=== PATIENT | male | born 1955 | race Caucasian/White ===

== ENCOUNTER 2022-04-12 09:23 | Inpatient (IN) | payer MEDICARE ==
[2022-04-12] VITALS (39 sets, daily range): BP systolic 94–127; BP diastolic 58–82
[~2022-04-12] VITALS: Ht 172.7 cm; Wt 78.1 kg
[2022-04-12] MEDS ORDERED: SODIUM CHLORIDE 0.9% 1000ML BAG (SEPSIS BOLUS) IV ONE (09:45)
[2022-04-12 09:50] LABS: HEMATOCRIT. 54.5 % (42.0-52.0); MEAN CORPUSCULAR HEMOGLOBIN 31.4 pg (28.0-32.0); MEAN CORPUSCULAR VOLUME 100.6 fL (80.0-94.0); MEAN PLATELET VOLUME 10.3 fl (7.4-10.4); PLATELET 232 x1000/uL (130-400); RED BLOOD CELL COUNT 5.42 mill/uL (4.7-6.1); RED CELL DISTRIBUTION WIDTH 14.8 % (11.6-14.6)
[2022-04-12 09:54] LABS: BG BASE EXCESS -24.5 mmol/L (-2.0-2.0); BG CARBOXYHEMOGLOBIN 0.3 % (0.5-1.5); BG DEOXYHEMOGLOBIN 1.8 % (0.0-5.0); BG FRACTION INSPIRED OXYGEN 32; BG METHEMOGLOBIN 0.7 % (0.0-1.5); BG OXYGEN SATURATION 98.2 % (92.0-98.5); BG OXYHEMOGLOBIN 97.2 % (94.0-97.0); BG PCO2 10.2 mmHg (35.0-45.0); BG PO2 149.6 mmHg (75.0-100.0); BG SAMPLE SITE RIGHT RADIAL; BG VENT MODE NASAL CANNULA
[2022-04-12 10:00] LABS: CHLORIDE 82 mEq/L (98-107)
[2022-04-12 10:14] LABS: PLATELET ESTIMATE NORMAL
[2022-04-12] MEDS ORDERED: INSULIN REGULAR (DRIP) 100 UNITS in SODIUM CHLORIDE 0.9% 100 ML IV ONE (10:15)
[2022-04-12 10:45] LABS: BETA HYDROXYBUTYRATE 13.8 mMol/L (0.0-0.3)
[2022-04-12] MEDS ORDERED: INSULIN REGULAR 100U/100ML PMX 100 ML IV NR (10:45)
[2022-04-12 10:47] LABS: PHOSPHORUS 8.3 mg/dL (2.5-4.9)
[2022-04-12] MEDS ORDERED: PIPERACILLIN/TAZ 3.375G PREMIX 50 ML IV NR (11:00)
[2022-04-12] MEDS ORDERED: VANCOMYCIN 1G PREMIX 200 ML IV NR (11:00)
[2022-04-12] MEDS ORDERED: DILTIAZEM HCL 5MG/ML 5ML VIAL IV ONE (11:15)
[2022-04-12] MEDS ORDERED: DILTIAZEM HCL 125 MG in DEXT 5% WATER 100 ML IV ONE (11:45)
[2022-04-12] MEDS ORDERED: DILTIAZEM 125MG/125ML PMX 100 ML IV ONE (12:16)
[2022-04-12 12:41] LABS: CLARITY URINE CLEAR (CLEAR); COLOR URINE YELLOW (YELLOW); KETONES URINE 4+ (NEGATIVE); LEUKOCYTE ESTERASE URINE NEGATIVE (NEGATIVE); NITRITE URINE NEGATIVE (NEGATIVE); OCCULT BLOOD URINE 1+ (NEGATIVE); PROTEIN URINE TRACE (NEGATIVE); SPECIFIC GRAVITY URINE 1.027 (1.005-1.030); UROBILINOGEN URINE 0.2 E.U./dL (0.2-1.0)
[2022-04-12] MEDS ORDERED: LIDOCAINE HCL/PF 1% 10 MG/ML 5ML VIAL ONE (12:41)
[2022-04-12] MEDS ORDERED: METF-414 PO (15:27)
[2022-04-12] MEDS ORDERED: SODIUM BICARBONATE 8.4% 1 MEQ/ML 50ML SYR IV NR (15:45)
[2022-04-12] MEDS ORDERED: SODIUM CHLORIDE 0.45% 1,000 ML IV SCH (15:45)
[2022-04-12] MEDS ORDERED: DEXTROSE 50% WATER 50ML SYRINGE IV PRN ×2 (16:15)
[2022-04-12] MEDS ORDERED: DIPHENHYDRAMINE 50MG/ML VIAL IV PRN (16:15)
[2022-04-12] MEDS ORDERED: IPRATROPIUM/ALBUTEROL 0.5-3(2.5)MG/3ML NEB HHN PRN (16:15)
[2022-04-12] MEDS ORDERED: HYDROCODONE/ACETAMINOPHEN 5/325MG TABLET PO PRN (16:15)
[2022-04-12] MEDS ORDERED: LORAZEPAM 2MG/ML CPJ IV PRN (16:15)
[2022-04-12] MEDS ORDERED: HYDRALAZINE 20MG/ML VIAL IV PRN (16:15)
[2022-04-12] MEDS ORDERED: ONDANSETRON HCL 4MG/2ML INJ IV PRN (16:15)
[2022-04-12] MEDS ORDERED: ACETAMINOPHEN 325MG TABLET PO PRN (16:15)
[2022-04-12] MEDS ORDERED: GUAIFENESIN 200MG/10ML SUGAR FREE UDC PO PRN (16:15)
[2022-04-12] MEDS ORDERED: DOCUSATE SODIUM 100MG CAPSULE PO PRN (16:15)
[2022-04-12] MEDS ORDERED: CLONIDINE 0.1MG TABLET PO PRN (16:15)
[2022-04-12] MEDS ORDERED: MAGNESIUM/ALUMINUM HYDROXIDE/SIMETHICONE 30ML UDC PO PRN (16:15)
[2022-04-12] MEDS ORDERED: MORPHINE SULFATE 2 MG/ML CPJ (NOT FOR IM USE) IV PRN (16:15)
[2022-04-12] MEDS: BLOOD SUGAR DIAGNOSTIC STRIP TEST SCH ×8 (16:20→23:07)
[2022-04-12] MEDS ORDERED: ENOXAPARIN 40MG/0.4ML SYR SUBCUT SCH (17:00)
[2022-04-12] MEDS ORDERED: NALOXONE HCL 0.4MG/ML VIAL IV PRN (17:15)
[2022-04-12] MEDS: INSULIN REGULAR 100U/100ML PMX 100 ML IV PRN ×2 (17:20→20:35)
[2022-04-12 19:22] LABS: CHLORIDE 108 mEq/L (98-107)
[2022-04-12] MEDS ORDERED: POTASSIUM CHLORIDE INJ 40 MEQ in DEXT 5% WATER 250 ML IV ONE (21:00)
[2022-04-12] MEDS ORDERED: KCL 20MEQ/100ML PREMIX 100 ML IV NR (21:00)
[2022-04-12] MEDS: DEXT 5%/0.45% NACL 1000ML 1,000 ML IV PRN (21:39)
[2022-04-12] MEDS: KCL 20MEQ/100ML PREMIX 100 ML IV SCH ×2 (21:39→22:56)
[2022-04-12] MEDS: SODIUM CHLORIDE 0.9% INJ 3ML FLUSH IVF SCH (21:40)
[2022-04-12] MEDS: PIPERACILLIN/TAZOBACTAM 3.375 G in DEXTROSE 5% WATER 50 ML IV SCH (21:40)
[2022-04-13] VITALS (58 sets, daily range): BP systolic 109–141; BP diastolic 70–88
[2022-04-13] MEDS: BLOOD SUGAR DIAGNOSTIC STRIP TEST SCH ×14 (00:18→21:09)
[2022-04-13 00:27] LABS: CHLORIDE 110 mEq/L (98-107)
[2022-04-13] MEDS: KCL 20MEQ/100ML PREMIX 100 ML IV SCH (01:11)
[2022-04-13] MEDS: PIPERACILLIN/TAZOBACTAM 3.375 G in DEXTROSE 5% WATER 50 ML IV SCH ×3 (06:04→21:15)
[2022-04-13] MEDS: SODIUM CHLORIDE 0.9% INJ 3ML FLUSH IVF SCH ×3 (06:04→21:09)
[2022-04-13] MEDS: DEXT 5%/0.45% NACL 1000ML 1,000 ML IV PRN (06:09)
[2022-04-13 07:34] LABS: CHLORIDE 112 mEq/L (98-107)
[2022-04-13] MEDS ORDERED: ENOXAPARIN 60MG/0.6ML SYR SUBCUT NR (11:00)
[2022-04-13 11:01] LABS: HEMATOCRIT. 36.7 % (42.0-52.0); HEMOGLOBIN. 12.4 g/dL (14.0-18.0); MEAN CORPUSCULAR HEMOGLOBIN 30.9 pg (28.0-32.0); MEAN CORPUSCULAR VOLUME 91.4 fL (80.0-94.0); MEAN PLATELET VOLUME 9.2 fl (7.4-10.4); PLATELET 151 x1000/uL (130-400); RED BLOOD CELL COUNT 4.01 mill/uL (4.7-6.1); RED CELL DISTRIBUTION WIDTH 13.4 % (11.6-14.6)
[2022-04-13] MEDS: DILTIAZEM HCL 30MG TABLET PO SCH ×2 (11:43→17:38)
[2022-04-13] MEDS: SODIUM CHLORIDE 0.45% 1,000 ML IV SCH ×2 (11:43→21:19)
[2022-04-13] MEDS: INSULIN GLARGINE 100 UNITS/ML SUBCUT SCH (11:43)
[2022-04-13 12:02] LABS: PLATELET ESTIMATE NORMAL
[2022-04-13 12:35] LABS: INR 0.9; PROTHROMBIN TIME 9.7 sec (9.6-11.0)
[2022-04-13] MEDS: INSULIN LISPRO 100 UNITS/ML SUBCUT SCH ×3 (13:30→21:14)
[2022-04-13] MEDS: ENOXAPARIN 60MG/0.6ML SYR SUBCUT SCH (22:01)
[2022-04-14] VITALS (82 sets, daily range): BP systolic 60–142; BP diastolic 43–76
[2022-04-14] MEDS: DILTIAZEM HCL 30MG TABLET PO SCH ×3 (00:50→14:12)
[2022-04-14] MEDS: PIPERACILLIN/TAZOBACTAM 3.375 G in DEXTROSE 5% WATER 50 ML IV SCH ×3 (06:10→21:06)
[2022-04-14] MEDS: SODIUM CHLORIDE 0.9% INJ 3ML FLUSH IVF SCH ×3 (06:11→22:00)
[2022-04-14] MEDS: BLOOD SUGAR DIAGNOSTIC STRIP TEST SCH ×4 (08:28→21:00)
[2022-04-14] MEDS: INSULIN LISPRO 100 UNITS/ML SUBCUT NR ×2 (08:45→14:11)
[2022-04-14] MEDS: SODIUM CHLORIDE 0.45% 1,000 ML IV SCH ×3 (08:50→21:59)
[2022-04-14] MEDS: INSULIN LISPRO 100 UNITS/ML SUBCUT SCH ×4 (08:51→21:08)
[2022-04-14] MEDS ORDERED: SODIUM CHLORIDE 0.9% 500 ML IV SCH (10:00)
[2022-04-14] MEDS ORDERED: ADENOSINE 3 MG/ML 2ML VIAL IV SCH (10:00)
[2022-04-14] MEDS ORDERED: AMIODARONE HCL 150 MG in DEXT 5% WATER 100 ML IV SCH (10:30)
[2022-04-14] MEDS ORDERED: AMIODARONE HCL 900 MG in DEXT 5% WATER 482 ML IV PRN (10:45)
[2022-04-14] MEDS ORDERED: ADENOSINE 3 MG/ML 2ML VIAL IV NR (11:00)
[2022-04-14] MEDS ORDERED: SODIUM CHLORIDE 0.9% IRRIG SOLUTION 1000ML IR ONE (11:00)
[2022-04-14] MEDS ORDERED: PHENYLEPHRINE 100 MG in DEXT 5% WATER 240 ML IV PRN (11:00)
[2022-04-14] MEDS ORDERED: SODIUM CHLORIDE 0.9% 500 ML IV ONE (11:15)
[2022-04-14] MEDS: ENOXAPARIN 60MG/0.6ML SYR SUBCUT SCH ×2 (11:19→23:31)
[2022-04-14] MEDS: INSULIN GLARGINE 100 UNITS/ML SUBCUT SCH (11:46)
[2022-04-14] MEDS ORDERED: INSULIN LISPRO 100 UNITS/ML SUBCUT NR ×2 (14:00→18:30)
[2022-04-14] MEDS ORDERED: INSULIN GLARGINE 100 UNITS/ML SUBCUT NR (14:00)
[2022-04-14 17:20] LABS: CHLORIDE 112 mEq/L (98-107)
[2022-04-14] MEDS: KCL 20MEQ/100ML PREMIX 100 ML IV SCH ×2 (18:35→21:00)
[2022-04-15] VITALS (61 sets, daily range): BP systolic 95–128; BP diastolic 46–92
[2022-04-15] MEDS: SODIUM CHLORIDE 0.45% 1,000 ML IV SCH ×3 (06:06→23:01)
[2022-04-15] MEDS: PIPERACILLIN/TAZOBACTAM 3.375 G in DEXTROSE 5% WATER 50 ML IV SCH ×3 (06:06→23:01)
[2022-04-15] MEDS: SODIUM CHLORIDE 0.9% INJ 3ML FLUSH IVF SCH ×3 (06:07→21:08)
[2022-04-15] MEDS: BLOOD SUGAR DIAGNOSTIC STRIP TEST SCH ×4 (08:05→21:03)
[2022-04-15] MEDS: INSULIN LISPRO 100 UNITS/ML SUBCUT SCH ×4 (08:10→21:03)
[2022-04-15] MEDS: ENOXAPARIN 60MG/0.6ML SYR SUBCUT SCH (09:00)
[2022-04-15] MEDS: DILTIAZEM HCL 30MG TABLET PO SCH ×3 (09:00→22:00)
[2022-04-15 09:13] LABS: MEAN CORPUSCULAR HEMOGLOBIN 31.8 pg (28.0-32.0); MEAN CORPUSCULAR VOLUME 92.6 fL (80.0-94.0); PLATELET 99 x1000/uL (130-400); RED BLOOD CELL COUNT 1.59 mill/uL (4.7-6.1); RED CELL DISTRIBUTION WIDTH 12.9 % (11.6-14.6)
[2022-04-15 09:16] LABS: HEMATOCRIT 14.7 % (42.0-52.0); HEMOGLOBIN 5.1 g/dL (14.0-18.0)
[2022-04-15] MEDS: INSULIN GLARGINE 100 UNITS/ML SUBCUT SCH ×2 (10:08→22:00)
[2022-04-15] MEDS ORDERED: PANTOPRAZOLE SODIUM 40 MG/VIAL IV SCH (11:30)
[2022-04-15] MEDS: PANTOPRAZOLE SODIUM 40 MG/VIAL IV SCH (17:24)
[2022-04-15 20:21] LABS: TOTAL IRON BINDING CAPACITY 216 ug/dL (250-450)
[2022-04-15 23:42] LABS: HEMOGLOBIN 7.3 g/dL (14.0-18.0)
[2022-04-16] VITALS (15 sets, daily range): BP systolic 97–116; BP diastolic 53–70
[2022-04-16] MEDS: PIPERACILLIN/TAZOBACTAM 3.375 G in DEXTROSE 5% WATER 50 ML IV SCH ×3 (05:11→21:49)
[2022-04-16] MEDS: SODIUM CHLORIDE 0.9% INJ 3ML FLUSH IVF SCH ×3 (05:11→21:51)
[2022-04-16] MEDS: DILTIAZEM HCL 30MG TABLET PO SCH ×3 (05:11→21:51)
[2022-04-16] MEDS: SODIUM CHLORIDE 0.45% 1,000 ML IV SCH ×3 (05:12→21:50)
[2022-04-16 05:48] LABS: INR 0.9; PROTHROMBIN TIME 9.9 sec (9.6-11.0)
[2022-04-16 06:20] LABS: MEAN CORPUSCULAR HEMOGLOBIN 30.6 pg (28.0-32.0); MEAN CORPUSCULAR VOLUME 89.1 fL (80.0-94.0); MEAN PLATELET VOLUME 9.9 fl (7.4-10.4); PLATELET 104 x1000/uL (130-400); RED BLOOD CELL COUNT 2.36 mill/uL (4.7-6.1); RED CELL DISTRIBUTION WIDTH 14.7 % (11.6-14.6)
[2022-04-16 06:30] LABS: CHLORIDE 114 mEq/L (98-107)
[2022-04-16 06:33] LABS: HEMOGLOBIN. 7.2 g/dL (14.0-18.0)
[2022-04-16] MEDS: BLOOD SUGAR DIAGNOSTIC STRIP TEST SCH ×4 (07:30→21:49)
[2022-04-16] MEDS: INSULIN LISPRO 100 UNITS/ML SUBCUT SCH ×4 (08:00→21:50)
[2022-04-16] MEDS ORDERED: POTASSIUM CHLORIDE INJ 40 MEQ in DEXT 5% WATER 250 ML IV ONE (09:30)
[2022-04-16 09:47] LABS: NUCLEATED RED BLOOD CELLS 1 /100 WBC; PLATELET ESTIMATE DECREASED
[2022-04-16] MEDS: INSULIN GLARGINE 100 UNITS/ML SUBCUT SCH ×2 (10:00→21:51)
[2022-04-16] MEDS: KCL 20MEQ/100ML X 2 FOR TOTAL KCL 40MEQ/200ML IV SCH ×2 (10:55→13:26)
[2022-04-16] MEDS: PANTOPRAZOLE SODIUM 40 MG/VIAL IV SCH ×2 (10:55→21:49)
[2022-04-16 21:45] LABS: HEMATOCRIT 25.6 % (42.0-52.0)
[2022-04-17] VITALS (12 sets, daily range): BP systolic 93–123; BP diastolic 49–68
[2022-04-17 03:06] LABS: HEMATOCRIT. 27.8 % (42.0-52.0); HEMOGLOBIN. 9.5 g/dL (14.0-18.0); MEAN CORPUSCULAR HEMOGLOBIN 30.4 pg (28.0-32.0); MEAN CORPUSCULAR VOLUME 89.6 fL (80.0-94.0); MEAN PLATELET VOLUME 9.4 fl (7.4-10.4); PLATELET 138 x1000/uL (130-400); RED BLOOD CELL COUNT 3.11 mill/uL (4.7-6.1); RED CELL DISTRIBUTION WIDTH 15.2 % (11.6-14.6)
[2022-04-17 03:15] LABS: CHLORIDE 113 mEq/L (98-107)
[2022-04-17 04:13] LABS: INR 0.9; PROTHROMBIN TIME 9.8 sec (9.6-11.0)
[2022-04-17 04:14] LABS: PLATELET ESTIMATE NORMAL
[2022-04-17] MEDS: DILTIAZEM HCL 30MG TABLET PO SCH ×3 (05:52→21:11)
[2022-04-17] MEDS: SODIUM CHLORIDE 0.45% 1,000 ML IV SCH ×2 (05:52→14:15)
[2022-04-17] MEDS: PIPERACILLIN/TAZOBACTAM 3.375 G in DEXTROSE 5% WATER 50 ML IV SCH ×2 (05:52→14:01)
[2022-04-17] MEDS: SODIUM CHLORIDE 0.9% INJ 3ML FLUSH IVF SCH ×3 (05:52→21:11)
[2022-04-17] MEDS: INSULIN LISPRO 100 UNITS/ML SUBCUT SCH ×3 (08:00→21:12)
[2022-04-17] MEDS: BLOOD SUGAR DIAGNOSTIC STRIP TEST SCH ×4 (08:16→20:27)
[2022-04-17] MEDS ORDERED: POTASSIUM CHLORIDE 20MEQ TABLET SR PO NR (09:30)
[2022-04-17] MEDS: PANTOPRAZOLE SODIUM 40 MG/VIAL IV SCH ×2 (09:53→21:10)
[2022-04-17] MEDS: INSULIN GLARGINE 100 UNITS/ML SUBCUT SCH ×2 (10:13→21:11)
[2022-04-17] MEDS ORDERED: METOCLOPRAMIDE HCL 10MG/2ML VIAL IV NR (10:30)
[2022-04-17] MEDS ORDERED: POTASSIUM CHLORIDE INJ 40 MEQ in DEXT 5% WATER 250 ML IV ONE (13:15)
[2022-04-17] MEDS: KCL 20MEQ/100ML X 2 FOR TOTAL KCL 40MEQ/200ML IV SCH ×4 (14:44→21:24)
[2022-04-17] MEDS ORDERED: POTASSIUM CHLORIDE 20MEQ/PACKET PO NR ×2 (16:15→23:00)
[2022-04-18] VITALS (12 sets, daily range): BP systolic 92–131; BP diastolic 53–80
[2022-04-18] MEDS: SODIUM CHLORIDE 0.45% 1,000 ML IV SCH ×4 (01:58→21:54)
[2022-04-18 04:11] LABS: CHLORIDE 111 mEq/L (98-107)
[2022-04-18 04:22] LABS: INR 0.9; PROTHROMBIN TIME 10.1 sec (9.6-11.0)
[2022-04-18 04:38] LABS: HEMATOCRIT. 21.9 % (42.0-52.0); HEMOGLOBIN. 7.6 g/dL (14.0-18.0); MEAN CORPUSCULAR HEMOGLOBIN 30.7 pg (28.0-32.0); MEAN CORPUSCULAR VOLUME 89.1 fL (80.0-94.0); MEAN PLATELET VOLUME 8.8 fl (7.4-10.4); PLATELET 138 x1000/uL (130-400); RED BLOOD CELL COUNT 2.46 mill/uL (4.7-6.1); RED CELL DISTRIBUTION WIDTH 14.8 % (11.6-14.6)
[2022-04-18] MEDS: DILTIAZEM HCL 30MG TABLET PO SCH (06:00)
[2022-04-18] MEDS: SODIUM CHLORIDE 0.9% INJ 3ML FLUSH IVF SCH ×3 (06:08→21:53)
[2022-04-18] MEDS: BLOOD SUGAR DIAGNOSTIC STRIP TEST SCH ×4 (07:30→21:51)
[2022-04-18] MEDS: INSULIN LISPRO 100 UNITS/ML SUBCUT SCH ×4 (08:00→21:53)
[2022-04-18 08:08] LABS: NUCLEATED RED BLOOD CELLS 2 /100 WBC
[2022-04-18] MEDS: PANTOPRAZOLE SODIUM 40 MG/VIAL IV SCH ×2 (09:27→21:52)
[2022-04-18] MEDS: INSULIN GLARGINE 100 UNITS/ML SUBCUT SCH ×2 (09:38→21:54)
[2022-04-18] MEDS ORDERED: PROPOFOL 200MG/20ML VIAL IV ONE (12:09)
[2022-04-18] MEDS ORDERED: LIDOCAINE HCL 1% 50ML VIAL (10MG/ML) ONE (12:13)
[2022-04-18 14:00] LABS: PLATELET ESTIMATE NORMAL
[2022-04-18] MEDS: SUCRALFATE 1 G/10 ML UDC PO SCH ×2 (17:39→21:51)
[2022-04-18 21:31] LABS: HEMATOCRIT 30.1 % (42.0-52.0); HEMOGLOBIN 10.1 g/dL (14.0-18.0)
[2022-04-19] VITALS (9 sets, daily range): BP systolic 96–129; BP diastolic 56–73
[2022-04-19] MEDS: SODIUM CHLORIDE 0.9% INJ 3ML FLUSH IVF SCH ×2 (06:35→22:42)
[2022-04-19] MEDS: SODIUM CHLORIDE 0.45% 1,000 ML IV SCH (06:35)
[2022-04-19] MEDS: INSULIN LISPRO 100 UNITS/ML SUBCUT SCH ×4 (08:00→20:41)
[2022-04-19 08:11] LABS: BASOPHILS % 0.2 % (0.0-2.0); HEMATOCRIT. 25.5 % (42.0-52.0); HEMOGLOBIN. 8.7 g/dL (14.0-18.0); LYMPHOCYTES % 18.2 % (20.0-50.0); MEAN CORPUSCULAR HEMOGLOBIN 30.7 pg (28.0-32.0); MEAN CORPUSCULAR VOLUME 89.7 fL (80.0-94.0); MEAN PLATELET VOLUME 8.5 fl (7.4-10.4); NEUTROPHILS % 67.6 % (40.0-76.0); PLATELET 185 x1000/uL (130-400); RED BLOOD CELL COUNT 2.85 mill/uL (4.7-6.1); RED CELL DISTRIBUTION WIDTH 14.7 % (11.6-14.6)
[2022-04-19] MEDS: BLOOD SUGAR DIAGNOSTIC STRIP TEST SCH ×4 (08:25→20:32)
[2022-04-19] MEDS: PANTOPRAZOLE SODIUM 40 MG/VIAL IV SCH ×2 (08:30→20:40)
[2022-04-19] MEDS: SUCRALFATE 1 G/10 ML UDC PO SCH ×4 (08:30→20:40)
[2022-04-19 08:39] LABS: CHLORIDE 108 mEq/L (98-107)
[2022-04-19] MEDS ORDERED: POTASSIUM CHLORIDE INJ 40 MEQ in DEXT 5% WATER 250 ML IV ONE (09:00)
[2022-04-19] MEDS ORDERED: POTASSIUM CHLORIDE 20MEQ TABLET SR PO NR ×2 (10:00→18:00)
[2022-04-19] MEDS: INSULIN GLARGINE 100 UNITS/ML SUBCUT SCH ×2 (10:34→22:42)
[2022-04-19] MEDS: KCL 20MEQ/100ML PREMIX 100 ML IV SCH ×2 (11:15→12:18)
[2022-04-19 17:31] LABS: HEMATOCRIT 28.9 % (42.0-52.0); HEMOGLOBIN 9.7 g/dL (14.0-18.0)
[2022-04-19 17:52] LABS: PHOSPHORUS 2.5 mg/dL (2.5-4.9)
[2022-04-20] VITALS: BP 111/63
[2022-04-20 04:00] VITALS: BP 127/68
[2022-04-20] MEDS: BLOOD SUGAR DIAGNOSTIC STRIP TEST SCH ×2 (06:46→11:53)
[2022-04-20] MEDS: SODIUM CHLORIDE 0.9% INJ 3ML FLUSH IVF SCH (06:51)
[2022-04-20 08:00] VITALS: BP 105/65
[2022-04-20] MEDS: SUCRALFATE 1 G/10 ML UDC PO SCH ×2 (08:05→12:14)
[2022-04-20] MEDS: PANTOPRAZOLE SODIUM 40 MG/VIAL IV SCH (08:05)
[2022-04-20] MEDS: INSULIN LISPRO 100 UNITS/ML SUBCUT SCH ×2 (08:06→12:15)
[2022-04-20 08:33] LABS: CHLORIDE 107 mEq/L (98-107)
[2022-04-20 08:48] LABS: PHOSPHORUS 3.2 mg/dL (2.5-4.9)
[2022-04-20 08:56] LABS: BASOPHILS % 0.4 % (0.0-2.0); EOSINOPHILS % 1.1 % (0.0-5.0); HEMATOCRIT. 26.6 % (42.0-52.0); HEMOGLOBIN. 8.9 g/dL (14.0-18.0); MEAN CORPUSCULAR HEMOGLOBIN 30.4 pg (28.0-32.0); MEAN CORPUSCULAR VOLUME 90.9 fL (80.0-94.0); MONOCYTES % 11.7 % (2.0-8.0); NEUTROPHILS % 70.8 % (40.0-76.0); PLATELET 218 x1000/uL (130-400); RED BLOOD CELL COUNT 2.93 mill/uL (4.7-6.1); RED CELL DISTRIBUTION WIDTH 14.7 % (11.6-14.6)
[2022-04-20] MEDS: INSULIN GLARGINE 100 UNITS/ML SUBCUT SCH (09:37)
[2022-04-20 12:00] VITALS: BP 113/71
[2022-04-20 13:38] VITALS: BP 117/62
== END 2022-04-20 15:26 | disposition home or self-care (01) | DRG 380 ==
LOC: ER 09:39 → CVICU 12:27 → EDBEDREQTM 13:17 → EDBEDREQ 13:17 → ENRESERV 14:05 → 5EST 04-15 11:20 → 7WST 04-19 15:48
PROVIDERS: ADMIT Internal Medicine; ATTEND Internal Medicine
PROC: 02HV33Z Insertion of Infusion Device into Superior Vena Cava, Percutaneous Approach (ICD-10-PCS; 2022-04-12)
PROC: B548ZZA Ultrasonography of Superior Vena Cava, Guidance (ICD-10-PCS; 2022-04-12)
PROC: 5A2204Z Restoration of Cardiac Rhythm, Single (ICD-10-PCS; 2022-04-14)
PROC: 30233N1 Transfusion of Nonautologous Red Blood Cells into Peripheral Vein, Percutaneous Approach (ICD-10-PCS; 2022-04-15)
PROC: 0DB78ZX Excision of Stomach, Pylorus, Via Natural or Artificial Opening Endoscopic, Diagnostic (ICD-10-PCS; principal; 2022-04-18)
PROC: 0DB58ZX Excision of Esophagus, Via Natural or Artificial Opening Endoscopic, Diagnostic (ICD-10-PCS; 2022-04-18)
DX: K22.11 Ulcer of esophagus with bleeding (principal); E11.10 Type 2 diabetes mellitus with ketoacidosis without coma; K85.90 Acute pancreatitis without necrosis or infection, unspecified; N17.0 Acute kidney failure with tubular necrosis; I47.1 Supraventricular tachycardia; E87.1 Hypo-osmolality and hyponatremia; R65.10 Systemic inflammatory response syndrome (SIRS) of non-infectious origin without acute organ dysfunction; K22.10 Ulcer of esophagus without bleeding; K29.70 Gastritis, unspecified, without bleeding; I48.0 Paroxysmal atrial fibrillation; D64.9 Anemia, unspecified; D69.6 Thrombocytopenia, unspecified; I48.91 Unspecified atrial fibrillation; E86.0 Dehydration; N28.1 Cyst of kidney, acquired; E87.6 Hypokalemia; Z20.822 Contact with and (suspected) exposure to COVID-19; Z87.19 Personal history of other diseases of the digestive system; Z91.14 Patient's other noncompliance with medication regimen
CPT/HCPCS: 36415; 36573; 36600; 71045; 76700; 80048; 80053; 81003; 82010; 82270; 82375; 82607; 82728; 82746; 82805; 82962; 83540; 83550; 83605; 83735; 83880; 84100; 84132; 84145; 84484; 85014; 85018; 85025; 85027; 86850; 86900; 86920; 87426; 88305; 93005; 93306; 99285; C1725; C9113; J0153; J0282; J1650; J1815; J2405; J2543; J2704; J2765; J3370; J3480; J3490; J7030; J7060; P9016

== ENCOUNTER 2022-08-30 10:36 | Inpatient (IN) | payer MEDICARE, MEDICAID ==
[~2022-08-30] VITALS: Ht 172.7 cm; Wt 67.1 kg
[2022-08-30 11:25] LABS: BASOPHILS % 0.4 % (0.0-2.0); EOSINOPHILS % 6.6 % (0.0-5.0); HEMATOCRIT. 42.8 % (42.0-52.0); HEMOGLOBIN. 14.8 g/dL (14.0-18.0); LYMPHOCYTES % 32.3 % (20.0-50.0); MEAN CORPUSCULAR HEMOGLOBIN 30.4 pg (28.0-32.0); MEAN CORPUSCULAR VOLUME 87.9 fL (80.0-94.0); MEAN PLATELET VOLUME 7.9 fl (7.4-10.4); MONOCYTES % 6.8 % (2.0-8.0); NEUTROPHILS % 53.9 % (40.0-76.0); PLATELET 237 x1000/uL (130-400); RED BLOOD CELL COUNT 4.87 mill/uL (4.7-6.1); RED CELL DISTRIBUTION WIDTH 15.2 % (11.6-14.6)
[2022-08-30 11:34] LABS: CHLORIDE 102 mEq/L (98-107); INR 0.9; PROTHROMBIN TIME 9.7 sec (9.6-11.0)
[2022-08-30] MEDS ORDERED: IPRATROPIUM/ALBUTEROL 0.5-3(2.5)MG/3ML NEB NEB PRN (12:45)
[2022-08-30] MEDS ORDERED: HYDRALAZINE 20MG/ML VIAL IV PRN (12:45)
[2022-08-30] MEDS ORDERED: ONDANSETRON HCL 4MG/2ML INJ IV PRN (12:45)
[2022-08-30] MEDS ORDERED: ACETAMINOPHEN 650MG SUPP PR PRN (12:45)
[2022-08-30] MEDS ORDERED: ASPIRIN 325MG EC TABLET PO ONE (13:15)
[2022-08-30 13:23] LABS: CLARITY URINE CLEAR (CLEAR); COLOR URINE YELLOW (YELLOW); KETONES URINE NEGATIVE (NEGATIVE); LEUKOCYTE ESTERASE URINE NEGATIVE (NEGATIVE); NITRITE URINE NEGATIVE (NEGATIVE); OCCULT BLOOD URINE NEGATIVE (NEGATIVE); PROTEIN URINE NEGATIVE (NEGATIVE); SPECIFIC GRAVITY URINE 1.007 (1.005-1.030); UROBILINOGEN URINE 0.2 E.U./dL (0.2-1.0)
[2022-08-30] MEDS: PANTOPRAZOLE 40MG DR TABLET PO SCH (13:56)
[2022-08-30 14:20] VITALS: BP 136/82
[2022-08-30 14:41] VITALS: BP 136/82
[2022-08-30 14:56] LABS: PHOSPHORUS 3.4 mg/dL (2.5-4.9)
[2022-08-30] MEDS ORDERED: DEXTROSE 50% WATER 50ML SYRINGE IV PRN (15:30)
[2022-08-30] MEDS ORDERED: METF-874 PO (15:32)
[2022-08-30] MEDS: ENOXAPARIN 40MG/0.4ML SYR SUBCUT SCH (15:43)
[2022-08-30 16:00] VITALS: BP 122/72
[2022-08-30 20:00] VITALS: BP_SYST 110; BP_SYST 117; BP_SYST 120; BP_DIAS 69; BP_DIAS 70; BP_DIAS 71
[2022-08-30] MEDS: BLOOD SUGAR DIAGNOSTIC STRIP TEST SCH (20:51)
[2022-08-30] MEDS: INSULIN LISPRO 100 UNITS/ML SUBCUT SCH (20:54)
[2022-08-31] VITALS (7 sets, daily range): BP systolic 95–153; BP diastolic 50–82
[2022-08-31] MEDS: PANTOPRAZOLE 40MG DR TABLET PO SCH (06:25)
[2022-08-31] MEDS: BLOOD SUGAR DIAGNOSTIC STRIP TEST SCH ×4 (06:25→21:00)
[2022-08-31] MEDS: INSULIN LISPRO 100 UNITS/ML SUBCUT SCH ×4 (07:06→21:00)
[2022-08-31 08:08] LABS: BASOPHILS % 0.4 % (0.0-2.0); EOSINOPHILS % 8.4 % (0.0-5.0); HEMATOCRIT. 41.9 % (42.0-52.0); HEMOGLOBIN. 14.6 g/dL (14.0-18.0); LYMPHOCYTES % 34.7 % (20.0-50.0); MEAN CORPUSCULAR HEMOGLOBIN 30.6 pg (28.0-32.0); MEAN CORPUSCULAR VOLUME 87.9 fL (80.0-94.0); MEAN PLATELET VOLUME 8.2 fl (7.4-10.4); MONOCYTES % 8.3 % (2.0-8.0); NEUTROPHILS % 48.2 % (40.0-76.0); PLATELET 228 x1000/uL (130-400); RED BLOOD CELL COUNT 4.76 mill/uL (4.7-6.1); RED CELL DISTRIBUTION WIDTH 15.3 % (11.6-14.6)
[2022-08-31 08:45] LABS: CHLORIDE 103 mEq/L (98-107)
[2022-08-31 09:03] LABS: HDL CHOLESTEROL 50 mg/dL (40-59); LDL CHOLESTEROL 138 mg/dL (5-100)
[2022-08-31] MEDS: ASPIRIN 81MG TABLET PO SCH (09:09)
[2022-08-31] MEDS: ENOXAPARIN 40MG/0.4ML SYR SUBCUT SCH (15:04)
[2022-09-01] VITALS: BP 106/66
[2022-09-01 04:00] VITALS: BP 107/69
[2022-09-01] MEDS: BLOOD SUGAR DIAGNOSTIC STRIP TEST SCH (07:26)
[2022-09-01] MEDS: INSULIN LISPRO 100 UNITS/ML SUBCUT SCH (07:26)
[2022-09-01 08:00] VITALS: BP 109/71
[2022-09-01] MEDS ORDERED: FAMOTIDINE 20MG TABLET PO SCH (09:00)
[2022-09-01] MEDS: ASPIRIN 81MG TABLET PO SCH (09:26)
[2022-09-01 11:46] LABS: BASOPHILS % 0.6 % (0.0-2.0); HEMATOCRIT. 43.7 % (42.0-52.0); HEMOGLOBIN. 14.8 g/dL (14.0-18.0); LYMPHOCYTES % 28.2 % (20.0-50.0); MEAN CORPUSCULAR HEMOGLOBIN 29.8 pg (28.0-32.0); MEAN CORPUSCULAR VOLUME 88.2 fL (80.0-94.0); MEAN PLATELET VOLUME 8.7 fl (7.4-10.4); MONOCYTES % 7.9 % (2.0-8.0); NEUTROPHILS % 53.3 % (40.0-76.0); PLATELET 224 x1000/uL (130-400); RED BLOOD CELL COUNT 4.95 mill/uL (4.7-6.1); RED CELL DISTRIBUTION WIDTH 15.6 % (11.6-14.6)
[2022-09-01 12:00] VITALS: BP 115/73
[2022-09-01 13:18] LABS: CHLORIDE 102 mEq/L (98-107)
[2022-09-01 13:35] LABS: HDL CHOLESTEROL 50 mg/dL (40-59); LDL CHOLESTEROL 131 mg/dL (5-100); PHOSPHORUS 3.4 mg/dL (2.5-4.9)
[2022-09-01 14:33] VITALS: BP 115/73
== END 2022-09-01 16:00 | disposition home health service (06) | DRG 69 ==
LOC: ER 10:36 → 6WST 13:05 → EDBEDREQTM 13:08 → EDBEDREQ 13:08
PROVIDERS: ADMIT Internal Medicine; ATTEND Internal Medicine
DX: G45.9 Transient cerebral ischemic attack, unspecified (principal); I95.1 Orthostatic hypotension; E11.9 Type 2 diabetes mellitus without complications; I10 Essential (primary) hypertension; Z79.82 Long term (current) use of aspirin; Z79.84 Long term (current) use of oral hypoglycemic drugs; Z86.73 Personal history of transient ischemic attack (TIA), and cerebral infarction without residual deficits; Z87.19 Personal history of other diseases of the digestive system
CPT/HCPCS: 36415; 71045; 73501; 80053; 80061; 80076; 81003; 82962; 83036; 83735; 83880; 84100; 84484; 85025; 93005; 97162; 99285; J1650; J1815